=== PATIENT | female | born 1970 | race Caucasian/White ===

== ENCOUNTER 2021-04-04 21:32 | Emergency (ER) | payer BC, SELFPAY ==
[2021-04-04 21:37] VITALS: BP 123/72; PULSE 75; RESP 18; TEMP 36.2; O2SAT 99; BMI 21.7
--- NOTE | 2021-04-04 21:49 | XRR_ITS ---
PROCEDURE INFORMATION: Exam: XR Right Wrist Exam date and time: 04/04/2021 9:49 PM Age: 50 years old Clinical indication: Injury or trauma; Other: Bed fell on RT wrist; Blunt trauma (contusions or hematomas); Right; Additional info: Right wrist injury TECHNIQUE: Imaging protocol: XR Right wrist. Views: 3 or more views. COMPARISON: No relevant prior studies available. FINDINGS: Bones/joints: Normal. Soft tissues: There is some dorsal soft tissue swelling seen overlying the distal right forearm right wrist. XR/XR wrist RT min 3V* [id number] IMPRESSION: There are no acute osseous findings.
--- NOTE | 2021-04-04 22:45 | ED_ITS ---
HPI - Extremity Problem General: Chief complaint: Extremity Injury, Upper Stated complaint: TRAUMA TO R ARM Time Seen by Provider: 04/04/21 21:51 History of Present Illness: HPI Narrative: 50-year-old female who was moving a bed on top of a car, and it fell striking her in the right distal forearm/wrist. She experienced pain and swelling. She has been icing. Her sensation is intact she says. MD Complaint: extremity pain and extremity swelling Onset (ago): hour(s) Pain Consistency: constant Location: right and upper extremity Quality: aching Radiation: none Relieving factors: cold therapy Exacerbating factors: range of motion Associated symptoms: Deny fever(s) or rash Review of Systems Const: Denies: fever(s) Skin/Breast: Denies: rash Physical Exam Const: COMMON NORMALS: no acute distress GENERAL APPEARANCE: not ill appearing Chest: COMMONS NORMALS: normal inspection of the chest Resp: COMMON NORMALS: normal respiratory effort, No retractions and clear to auscultation bilaterally AUSCULTATION: clear to auscultation bilaterally Cardio: COMMON NORMALS: regular rate and regular rhythm RATE: regular rate RHYTHM: regular rhythm Extremity: NARRATIVE EXTREMITY EXAM: Exam of the right upper extremity reveals swelling to the dorsum of the right distal forearm and wrist. There is an abrasion as well that is small. No laceration. No distinct bony deformity. She is tender over the swollen area, sensation is intact distally. She has good movement distally. Capillary refill is normal. Course Vital Signs: Vital signs: Vital Signs Temperature 97.1 F L 04/04/21 21:37 Pulse Rate 75 04/04/21 21:37 Respiratory Rate 18 04/04/21 21:37 Blood Pressure 123/72 04/04/21 21:37 Pulse Oximetry 99 04/04/21 21:37 MDM - Extremity (Nontraumatic) MDM Narrative: Medical decision making narrative: X-ray negative for fracture Discharge Plan Discharge Patient Disposition: Home Clinical Impression: Contusion of right wrist Qualifiers: Encounter type: initial encounter Qualified Code(s): S60.211A - Contusion of right wrist, initial encounter Condition: Stable Prescriptions: New ketorolac 10 mg tablet 10 mg PO TID PRN (Reason: pain) Qty: 10 RF: 0 Discharge Orders: Discharge ED (Routine); Ordered 04/04/21 Ordered By: Jerad Truong Discharge Diet: Usual diet Discharge Activity: Limit activity as instructed Patient Instructions: Wrist Injury (ED) Activity Restrictions/Additional Instructions: Return for worsening pain despite treatment, significant pain with movement of the fingers, particularly flexion or extension, worsening redness, streaking, warmth, any other concerning symptoms. Coding Level of Care Code ED [employer] Exam Expanded Problem Focused
[2021-04-04] MEDS: oxyCODONE-APAP 5-325 mg Tablet 2 TAB PO (23:30)
== END 2021-04-04 23:37 | disposition home or self-care (01) ==
PROVIDERS: Emergency Provider Emergency Medicine
DX: S60.211A Contusion of right wrist, initial encounter (principal); W20.8XXA Other cause of strike by thrown, projected or falling object, initial encounter
CPT/HCPCS: 73110; 99283